=== PATIENT | female | born 1960 ===

== ENCOUNTER 2025-05-19 09:58 | Outpatient (AMB) | payer OTHER, SELFPAY ==
--- NOTE | 2025-05-19 10:01 | A.OFFPC_ITS ---
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: No Accompanied by: Self / Same As Patient Allergies No Known Allergies Allergy (Verified 05/19/25 10:04) Medication List - Last Reconciled 05/19/25 by Shea Rock MD alcohol swabs (Alcohol Prep Pads) pad topical DAILY anastrozole 1 mg PO DAILY aspirin 1 tab PO DAILY blood sugar diagnostic (IncentientTouch Verio test strips) As directed cholecalciferol (vitamin D3) 50 mcg PO DAILY cyclosporine 0.05% (Restasis) 1 drp ophthalmic (eye) BID glipizide 5 mg PO DAILY ibuprofen 400 mg PO Q6H levothyroxine 75 mcg PO DAILY losartan 25 mg PO DAILY metformin 1,000 mg PO DAILY simvastatin 10 mg PO BEDTIME Tobacco use date assessed: 05/19/25 Fall risk assessment: 1 Fall in past year Last assessed Fall Risk: 05/19/25 Dental Screening Dental Screen Date: 05/19/25 Did you have a dental visit in the last 12 months?: Yes Did you have a dental problem in the last 6 months where you did not have access to dental care?: No Was dental information given to patient?: Patient has dentist HPI HPI Comments History of Present Illness Details The patient is a 65-year-old female presenting for physical and to reestablish care. Breast Cancer: On anastrozole. MRI for chest complaints, normal results per patient, done at [facility]. Diabetes Mellitus Type 2: On metformin, glipizide. Regular glucose monitoring. Occasional missed glipizide doses. Hypothyroidism: On levothyroxine. Stable condition. Adequate medication supply. Hypertension: On losartan. Stable blood pressure levels. No stressors noted. Hyperlipidemia: On simvastatin. Compliance noted. Vitamin D Deficiency: Requires refill prescription for vitamin D. Potential Reactive Airway Disease: Cold-induced chest tightness suggestive of reactive airway disease. No asthma history. Carpal Tunnel Syndrome: Surgery planned for June to be done by Dr. Snell at [facility]. Symptoms include arm and hand pain. Medical History: - Breast Cancer - Diabetes Mellitus Type 2 - Hypothyroidism - Hypertension - Hyperlipidemia - Vitamin D Deficiency Health Maintenance mammogram/breast screening- done at [facility] colonoscopy- will obtain records pap smear done at [facility], used to go to [facility], counseled on importance based on comorbidities Social History: - Employment: Engages in work , does merissa e walking at lunchtime. - Exercise: Limited structured exercise, but has a treadmill and equipment at home. - Nutritional Intake: Reports consuming boiled eggs, tea with honey, and a low- carb diet. 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 - Housing: Stable living arrangement. - Family Status: Diagnostic Results: - Tests: Recent MRI for chest complaints returned normal results. - Diagnostics: No recent diagnostic test results discussed. Review of Systems - General: Reports fatigue, particularly following work. - Respiratory: Denies dyspnea at rest, b ut reports cold-induced tightness in chest. -Cardiovascular: Denies chest pain. - Endocrine: Denies symptoms indicative of unregulated thyroid status, e.g., no fatigue related to hypothyroidism. - Musculoskeletal: Reports shoulder pain on occasion. - Neurologic: Denies new neurological de ficits, reports carpal tunnel symptoms. Physical Exam General: NAD Chest: CTABL. Card: normal s1, s2, soft murmur across precordium Abd: SNTND, +BS Extremities: no edema Neuro: AOX3 Assessment and Plan 1. Breast Cancer - Continue anastrozole. Obtain records. 2. Diabetes Mellitus Type 2 - Continue medication. Monitor glucose l evels regularly. 3. Hypothyroidism - Maintain current treatment. Check thyr oid function routinely. 4. Hypertension - Continue losartan. Manage blood pressu re. 5. Hyperlipidemia - Maintain simvastatin. Lipid panel red odically. 6. Pain in Shoulders - Monitor symptoms. 7. Vitamin D Deficiency - Renew vitamin D prescription. 8. Potential Reactive Airway Disease - Prescribe albuterol inhaler. Use as ne eded. 9. Carpal Tunnel Syndrome - Follow up with hand surgery Follow up in 3-4 months Discussion Notes I discussed with the patient her ongoing management of multiple chronic conditions. We acknowledged the importance of maintaining glucose control in diabetes and planned regular monitoring to track effectiveness of therapies in place. We ensured continuation of her current antihypertensive and lipid- lowering medications, emphasizing their staple role in her regimen. Understanding her potential reactive airway issues, I advocated for the use of an albuterol inhaler to address symptoms related to cold-induced bronchial constriction, and provided instructions on inhaler use. Patient Instructions - Continue taking your medications as pr escribed. - Use albuterol inhaler before going int o cold weather. - Monitor blood sugar levels every day i n the morning. - Start walking on the treadmill for 30 minutes on your favorite show days. - Keep track of your steps with your Edil le Watch to stay motivated. - Reach out via the patient portal for a ny updates or questions. - Call your tare worker to schedule you r next visit as recommended. - Remember to get flu shots and pneumoni a shots - Reduce inflammation post-surgery using Tylenol and avoid daily NSAIDs. - Weigh yourself weekly aiming for a sma ll but steady weight loss. - Balance your meals with healthy option s to maintain calorie intake. [facility] Medical History (Updated 05/19/25 @ 13:12 by Shea Rock MD) Routine adult health maintenance Vitamin D deficiency Sleep apnea Breast cancer Hypothyroidism Diabetes mellitus type 2 in obese Primary hypertension Surgical History (Updated 05/19/25 @ 11:24 by Shea Rock MD) H/O breast surgery History of colonoscopy (~06/29/23) Family History (Updated 05/19/25 @ 11:18 by Shea Rock MD) Brother FHx: cancer of prostate Diabetes mellitus Mother Osteoporosis Primary hypertension Social History Housing: House Patient Tobacco Use Status: Never used Tobacco e-Cigarette/Vaping Use: Never Used service: No Current occupational status: employed 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 1. Little interest or pleasure in doing things: several days 2. Feeling down, depressed, or hopeless: not at all 3. Trouble falling or staying asleep, or sleeping too much: several days 4. Feeling tired or having little energy: more than half the days 5. Poor appetite or overeating: not at all 6. Feeling bad about yourself - or that you are a failure or have let yourself or your family down: not at all 7. Trouble concentrating on things, such as reading the newspaper or watching television: not at all 8. Moving or speaking so slowly that other people could have noticed. Or the opposite - being so fidgety or restless that you have been moving around a lot more than usual: not at all 9. Thoughts that you would be better off or of hurting yourself in some way: not at all Total score: 4 [id number] - PHQ-9 Billing: Yes Source: Developed by Drs. Yared Pizarro, Anika Quigley, Andres Ball and colleagues, with an educational maria esther from [employer]. AUDIT C Alcohol Use Questionnaire (AUDIT-C) 1. How often do you have a drink containing alcohol?: Monthly or less 2. How many drinks containing alcohol do you have on a typical day when you are drinking?: 1 or 2 3. How often do you have six or more drinks on one occasion?: Never Total Score: 1 DWAINE-7 AMB Questionnaire DWAINE-7 Date DWAINE - 7 assessed: 05/19/25 Feeling nervous, anxious, or on edge: 0 = Not at all Not being able to stop or control worryin = Not at all Worrying too much about different things: 0 = Not at all Trouble relaxin = Not at all Being so restless that it is hard to sit still: 1 = Several days Becoming easily annoyed or irritable: 0 = Not at all Feeling afraid as if something awful might happen: 0 = Not at all Total DWAINE-7 score (0-4 normal; 5-9 mild; 10-14 moderate; 15-21 severe): 1 Source: Developed by Drs. Yared Pizarro, Anika Quigley, Andres Ball and colleagues, with an educational maria esther from [employer]. Physical exam (Primary Care) Vital Signs: Last Vital Signs Temp 97.1 F 05/19/25 10:04 Pulse 72 05/19/25 10:04 Resp 16 05/19/25 10:04 BP 124/82 05/19/25 10:04 Pulse Ox 96 05/19/25 10:04 Oxygen Delivery Method Room Air 05/19/25 10:04 BMI result Body Mass Index 33.5 Tobacco/Smoking Status: Tobacco use Status Tobacco use date assessed 05/19/25 05/19/25 10:09 Patient Tobacco Use Status Never used Tobacco 05/19/25 10:09 e-Cigarette/Vaping Use Never Used 05/19/25 10:09 PHQ-9: PHQ-9 Score PHQ-9: Total score 4 05/19/25 11:01 Coding Level of Care Code Est Pt Prev Care 40-64y(51430) Diagnoses Routine adult health maintenance Z00.00 Diabetes mellitus type 2 in obese E11.69; E66.9 Primary hypertension I10 Acquired hypothyroidism E03.9 Hypothyroidism type: acquired Malignant neoplasm of female breast, unspecified estrogen receptor status, unspecified laterality, unspecified site of breast C50.919 Breast location: unspecified site of breast Estrogen receptor status: unspecified Patient sex: female Laterality: unspecified laterality Vitamin D deficiency E55.9 Additional Codes PHQ-9 - 73519 - PHQ-9 Billing: Yes ([id number]) Assessment & Plan Assessment & Plan (1) Routine adult health maintenance: Code(s): Z00.00 - Encounter for general adult medical examination without abnormal findings Category: Medical (2) Diabetes mellitus type 2 in obese: Code(s): E11.69 - Type 2 diabetes mellitus with other specified complication; E66.9 - Obesity, unspecified Category: Medical (3) Primary hypertension: Code(s): I10 - Essential (primary) hypertension Category: Medical (4) Hypothyroidism: Code(s): E03.9 - Hypothyroidism, unspecified Category: Medical Qualifiers: Hypothyroidism type: acquired Qualified Code(s): E03.9 - Hypothyroidism, unspecified (5) Breast cancer: Code(s): C50.919 - Malignant neoplasm of unspecified site of unspecified female breast Category: Medical Qualifiers: Breast location: unspecified site of breast Estrogen receptor status: unspecified Patient sex: female Laterality: unspecified laterality Qualified Code(s): C50.919 - Malignant neoplasm of unspecified site of unspecified female breast (6) Vitamin D deficiency: Code(s): E55.9 - Vitamin D deficiency, unspecified Category: Medical Plan - Maintain current medication regimen. - Albuterol inhaler prescribed for cold exposure. - Monitor blood glucose regularly. - Follow up in 3-4 months Orders: Orders TSH reflex Free T4 Today C50.919 - Malignant neoplasm of unspecified site of unspecified female breast, E03.9 - Hypothyroidism, unspecified, E11.69 - Type 2 diabetes mellitus with other specified complication, E55.9 - Vitamin D deficiency, unspecified, E66.9 - Obesity, unspecified, I10 - Essential (primary) hypertension Microalbumin, Random (w Creat) Today E11.69 - Type 2 diabetes mellitus with other specified complication, E66.9 - Obesity, unspecified, I10 - Essential (primary) hypertension Complete Blood Count Auto Diff Today C50.919 - Malignant neoplasm of unspecified site of unspecified female breast, E03.9 - Hypothyroidism, unspecified, E11.69 - Type 2 diabetes mellitus with other specified complication, E55.9 - Vitamin D deficiency, unspecified, E66.9 - Obesity, unspecified, I10 - Essential (primary) hypertension Comprehensive Met. Panel Today C50.919 - Malignant neoplasm of unspecified site of unspecified female breast, E03.9 - Hypothyroidism, unspecified, E11.69 - Type 2 diabetes mellitus with other specified complication, E55.9 - Vitamin D deficiency, unspecified, E66.9 - Obesity, unspecified, I10 - Essential (primary) hypertension Hemoglobin A1c Today C50.919 - Malignant neoplasm of unspecified site of unspecified female breast, E03.9 - Hypothyroidism, unspecified, E11.69 - Type 2 diabetes mellitus with other specified complication, E55.9 - Vitamin D deficiency, unspecified, E66.9 - Obesity, unspecified, I10 - Essential (primary) hypertension Vitamin D 25-OH Total Today C50.919 - Malignant neoplasm of unspecified site of unspecified female breast, E03.9 - Hypothyroidism, unspecified, E11.69 - Type 2 diabetes mellitus with other specified complication, E55.9 - Vitamin D deficiency, unspecified, E66.9 - Obesity, unspecified, I10 - Essential (primary) hypertension Medications: New cholecalciferol (vitamin D3) 50 mcg PO DAILY 90 caps 3RF blood sugar diagnostic (IncentientTouch Verio test strips) dx: e11.9 use once per day 100 ea 9RF diabetes mellitus albuterol sulfate 90 mcg/actuation (Ventolin HFA) 2 puffs inhalation Q6H PRN 8.5 grams 0RF shortness of breath or wheezing, chest tightness
[2025-05-19 10:04] VITALS: BP 124/82; PULSE 72; RESP 16; TEMP 36.2; O2SAT 96; BMI 33.5
== END 2025-05-19 11:03 | disposition home or self-care (01) ==
LOC: HO.HMCHD 09:58
PROVIDERS: PCP Internal Medicine; Visit Provider Internal Medicine
DX: Z00.00 Encounter for general adult medical examination without abnormal findings (principal); E11.69 Type 2 diabetes mellitus with other specified complication; E66.9 Obesity, unspecified; I10 Essential (primary) hypertension; E03.9 Hypothyroidism, unspecified; C50.919 Malignant neoplasm of unspecified site of unspecified female breast; E55.9 Vitamin D deficiency, unspecified

== ENCOUNTER 2025-05-19 11:07 | Outpatient (REF) | payer OTHER, SELFPAY ==
[2025-05-19 13:08] LABS: MANUAL DIFF FLAG NO
[2025-05-19 13:40] LABS: Hemoglobin A1C 127.6230 umol/L; Total Hemoglobin (HGBA1C) 2258.6789 umol/L
[2025-05-19 13:52] LABS: Hematocrit 41.1 % (37.0-47.0); Hemoglobin 13.1 g/dl (12.0-16.0); Imm Gran Abs Auto 0.02 X10*3/uL (0.00-0.03); Imm Gran Pct Auto 0.4 % (0.0-0.4); Lymphocytes Absolute Auto 1.9 X10*3/uL (1.2-4.9); Mean Corpuscular HGB Conc 31.9 g/dl (31.0-35.0); Mean Corpuscular Hemoglobin 28.5 pg (27.0-33.0); Mean Corpuscular Volume 89.5 fL (80.0-98.0); NRBC Abs Auto 0.000 X10*3/uL (0.0-0.012); NRBC Pct Auto 0.0 /100WBC (0.0-0.2); Platelet Count 266 X10*3/uL (160-400); Red Blood Count 4.59 X10*6/uL (4.20-5.50); White Blood Count 5.3 X10*3/uL (4.8-10.8)
[2025-05-19 14:05] LABS: Alanine Aminotransferase 20 U/L (0-31); Albumin Level 4.5 g/dL (3.5-5.0); Alkaline Phosphatase 99 U/L (39-117); Anion Gap 10 (12-20); Aspartate Amino Transferase 23 U/L (5-31); Blood Urea Nitrogen 15 mg/dL (9-16); Calcium 9.8 mg/dL (8.4-10.2); Carbon Dioxide 29 mmol/L (22-29); Chloride 105 mmol/L (96-108); Estimated Glomerular Filt Rate 55; Potassium 4.3 mmol/L (3.3-5.1); Sodium 140 mmol/L (135-145); Total Protein 7.3 g/dL (6.5-8.0)
== END 2025-05-19 11:08 | disposition home or self-care (01) ==
LOC: HO.10HDL 11:07
PROVIDERS: Visit Provider Internal Medicine
DX: I10 Essential (primary) hypertension (principal); E11.69 Type 2 diabetes mellitus with other specified complication; E66.9 Obesity, unspecified; E03.9 Hypothyroidism, unspecified; C50.919 Malignant neoplasm of unspecified site of unspecified female breast; E55.9 Vitamin D deficiency, unspecified
CPT/HCPCS: 36415; 80053; 82043; 82306; 82570; 83036; 84443; 85025